=== PATIENT | male | born 1990 | race Caucasian/White ===

== ENCOUNTER 2023-07-09 16:45 | Emergency (ER) | payer OTHER ==
[2023-07-09 16:50] VITALS: BP 128/85; PULSE 101; RESP 18; TEMP 97.5; BMI 28.1
== END 2023-07-09 19:27 | disposition left against medical advice (07) ==
LOC: JER 16:45
DX: M54.9 Dorsalgia, unspecified (principal); Z53.21 Procedure and treatment not carried out due to patient leaving prior to being seen by health care provider
CPT/HCPCS: 99281-25

== ENCOUNTER 2024-05-21 09:47 | Inpatient (IN) | payer OTHER ==
[2024-05-21] MEDS ORDERED: guaiFENesin 600 MG TABLET.ER (FP) PO PRN (11:18)
[2024-05-21] MEDS ORDERED: NICOTINE POLACRILEX 2 MG GUM BUC PRN (11:18)
[2024-05-21] MEDS ORDERED: POLYETHYLENE GLYCOL (HEALTHYLAX) 3350 17 GM PACKET PO PRN (11:18)
[2024-05-21] MEDS ORDERED: MAGNESIUM HYDROX 2400MG/30ML ORAL SUSPENSION 30 ML CUP PO PRN (11:18)
[2024-05-21] MEDS ORDERED: ACETAMINOPHEN 325 MG TABLET (FP) PO PRN (11:18)
[2024-05-21] MEDS ORDERED: LOPERAMIDE HCL 2 MG CAPSULE PO PRN (11:18)
[2024-05-21] MEDS ORDERED: BENZOCAINE/MENTHOL (CHLORASEPTIC ) LOZENGE MM PRN (11:18)
[2024-05-21] MEDS ORDERED: NICOTINE POLACRILEX 2 MG LOZENGE BC PRN (11:18)
[2024-05-21] MEDS ORDERED: IBUPROFEN 400 MG TABLET (FP) PO PRN (11:18)
[2024-05-21] MEDS ORDERED: BENZONATATE 200 MG CAPSULE PO PRN (11:18)
[2024-05-21] MEDS ORDERED: P-EPHED 60MG/TRIPROLIDI 2.5MG TABLET PO PRN (11:18)
[2024-05-21] MEDS ORDERED: MAG HYDROX/AL HYDROX/SIMETH 30 ML UNIT-DOSE CUP PO PRN (11:18)
[2024-05-21] MEDS ORDERED: IBUPROFEN 600 MG TABLET (FP) PO PRN (11:18)
[2024-05-21 11:52] VITALS: BMI 27.3
[2024-05-21] MEDS: OLANZapine 10 MG TABLET PO ONE (16:50)
[2024-05-21] MEDS: THIAMINE 100 MG TABLET PO SCH (21:13)
[2024-05-21] MEDS: MELATONIN 5 MG TABLETS PO SCH (21:13)
[2024-05-21] MEDS: OLANZapine 10 MG TABLET PO SCH (21:13)
[2024-05-22] MEDS: PRENATAL VITAMINS W/ FOLIC ACID TABLET (FP) PO SCH (10:15)
[2024-05-22 11:59] LABS: HEMOGLOBIN 15.5 GM/dL (11.7-16.9); MCH 29.2 pg (25.7-33.7); MCHC 33.7 g/dl (32.0-35.9); MEAN CELL VOLUME 86.7 fl (80-96); MEAN PLT VOLUME 7.9 fl (7.5-11.1); PLATELET COUNT 264 10^3/uL (134-434); RDW 13.9 % (11.9-15.9); WHITE BLOOD COUNT 4.8 K/mm3 (4.0-10.0)
[2024-05-22 13:56] LABS: POTASSIUM 4.1 mmol/L (3.5-5.1)
[2024-05-22 14:02] LABS: CALCIUM 9.2 mg/dL (8.5-10.1)
[2024-05-22 14:03] LABS: ALBUMIN 3.9 g/dl (3.4-5.0); BLOOD UREA NITROGEN 11.6 mg/dL (7-18)
[2024-05-22 14:06] LABS: CREATININE 0.9 mg/dL (0.55-1.3)
[2024-05-22 14:08] LABS: BILIRUBIN,TOTAL 0.6 mg/dL (0.2-1); TOT PROT 6.9 g/dl (6.4-8.2)
[2024-05-24 06:44] VITALS: BP 110/74; PULSE 88; RESP 17; TEMP 97.3
[2024-05-24] MEDS: hydrOXYzine PAMOATE 25 MG CAPSULE (FP) PO PRN (09:54)
== END 2024-05-24 11:25 | disposition left against medical advice (07) | DRG 770 ==
LOC: YASAS 09:47 → Y3W 12:11
PROVIDERS: ADMIT Psychiatry & Neurology Pain Medicine; ATTEND Psychiatry & Neurology Pain Medicine
PROC: HZ42ZZZ Group Counseling for Substance Abuse Treatment, Cognitive-Behavioral (ICD-10-PCS; principal; 2024-05-21)
DX: F14.20 Cocaine dependence, uncomplicated (principal); F19.20 Other psychoactive substance dependence, uncomplicated; F12.20 Cannabis dependence, uncomplicated; F17.210 Nicotine dependence, cigarettes, uncomplicated; F31.9 Bipolar disorder, unspecified
CPT/HCPCS: 36415; 80053; 80305; 85027; 86780; 87811; 93005; 93010